=== PATIENT | female | born 1960 | race Caucasian/White ===

== ENCOUNTER → 2023-08-09 07:48 | Outpatient (CLI) | payer MEDICARE, OTHER, SELFPAY ==
--- NOTE | 2023-08-09 07:52 | DI.US.S_ITS ---
PROCEDURE: US PELVIC COMPLETE INDICATIONS: PELVIC PAIN TECHNIQUE: Real-time scanning was performed of the pelvic organs, with image documentation. Additional endovaginal scanning was necessary due to incomplete visualization of the adnexal and endometrial structures by transabdominal scanning. COMPARISON: None. FINDINGS: Uterus: Uterus is anteverted and normal in size at 6.5 x 2.9 x 3.9 cm. The myometrium is homogeneous. The endometrium measures 4 mm combined thickness. Ovaries: The right ovary measures 2.9 x 2.0 x 1.8 cm, with a calculated ovarian volume of 5.3 cc. The left ovary is not visualized. The ovaries have a normal sonographic appearance. Less than 12 follicles can be seen in each ovary. No adnexal masses are seen. Other: No pathologic free abdominal or pelvic fluid. IMPRESSION: 1. Left ovary is not visualized. 2. Normal uterus and right ovary. 3. A cause for pelvic pain is not identified. We strive to produce accurate, complete, and clear reports of imaging services. To assist us in improving patient care, this report was composed using standard report templates and voice recognition software. Therefore, it may contain abnormal punctuation, insertions and/or omissions. Occasional wrong-word or sound-alike substitutions may occur. Though we review the report and make efforts to correct it, we do recommend that the report be read carefully in proper context to recognize any text inaccuracies. Dictated by: Sumit Fletcher M.D. on 08/09/2023 at 10:01 Approved by: Sumit Fletcher M.D. on 08/09/2023 at 10:03
== END ==
PROVIDERS: PCP Nurse Practitioner; Referring Provider Nurse Practitioner; Visit Provider Nurse Practitioner
DX: N94.89 Other specified conditions associated with female genital organs and menstrual cycle (principal)
CPT/HCPCS: 76830; 76856

== ENCOUNTER → 2023-08-29 12:28 | Outpatient (CLI) | payer MEDICARE, OTHER, SELFPAY ==
--- NOTE | 2023-08-29 12:29 | DI.RAD.S_ITS ---
PROCEDURE: XR HIP W PEL IF DONE ELENA MIN 4V INDICATIONS: Right hip pain - concern for osteoarthritis TECHNIQUE: AP pelvis with lateral view(s) of the bilateral hip(s). COMPARISON: [facility], CR, [id number] W PEL IF PERFORMED, 12/15/2016, 15:28. FINDINGS: Bones: 2 irregular lines of sclerosis along the subcapital left femoral neck are new since prior exams. There is progressive femoroacetabular joint space loss on the left and mild medial joint space loss in the right hip. There is chronic irregularity at the left pubic symphysis suggesting a remote fracture. Soft tissues: There is new calcification immediately lateral to the right femoroacetabular joint. Bowel gas pattern is normal. IMPRESSION: 1. There is no periarticular calcification at the right hip which may be chondrocalcinosis, articular surface or labral. 2. Development of subcapital sclerotic lines in the left femoral neck is suspicious for insufficiency fracture. Consider MRI for detection of acute osseous edema. Dictated by: Melba Curry M.D. on 08/29/2023 at 15:59 Approved by: Melba Curry M.D. on 08/29/2023 at 16:14
== END ==
PROVIDERS: PCP Nurse Practitioner; Referring Provider Physician Assistant; Visit Provider Physician Assistant
DX: M25.551 Pain in right hip (principal)
CPT/HCPCS: 73522

== ENCOUNTER → 2023-09-05 08:07 | Outpatient (CLI) | payer MEDICARE, OTHER, SELFPAY ==
--- NOTE | 2023-09-05 08:09 | DI.ECHO.S_ITS ---
[facility] +---------+ : : [address] : : : : [id number] : : : : Phone: [phone]+ Echocardiogram Report + + :Name: AARON ARAGON V Study Date: 09/05/2023 Height: 65 in : :[facility] ReadingLocation: Weight: 130 lb : : Gender: Female BSA: 1.6 m2 : :: 1960 Age: 63 yrs BP: 105/66 mmHg: :Reason For Study: HYPERTENSION : :Ordering Physician: SANDOR, : :WESLY Performed By: Audrey Rodriguez : :Referring: WESLY PATTEN : + + Interpretation Summary The ejection fraction is estimated to be 60-65%. Diastolic parameters suggest probable normal left ventricular diastolic function and normal filling pressures. The right ventricle is normal in size and function. There is mild tricuspid regurgitation. The right ventricular systolic pressure is estimated to be at least 18 mmHg based on an estimated right atrial pressure of 3 mm Hg. Procedure: A two-dimensional transthoracic echocardiogram with color flow and Doppler was performed. The study quality was technically adequate. There is no prior echocardiogram noted for this patient. The patient was in sinus bradycardia with heart rates between 49-66 bpm during the exam. Left Ventricle: The left ventricle is normal in size and wall thickness. The ejection fraction is estimated to be 60-65%. Diastolic parameters suggest probable normal left ventricular diastolic function and normal filling pressures. Right Ventricle: The right ventricle is normal in size and function. Atria: The left atrial size is normal. Right atrial size is normal. There is no Doppler evidence for an interatrial shunt. Mitral Valve: The mitral valve is normal in structure and function. There is trace mitral regurgitation. Aortic Valve: The aortic valve is trileaflet. The aortic valve opens well. There is no aortic valve stenosis. No aortic regurgitation is present. Tricuspid Valve: The tricuspid valve is normal in structure and function. There is mild tricuspid regurgitation. The right ventricular systolic pressure is estimated to be at least 18 mmHg based on an estimated right atrial pressure of 3 mm Hg. Pulmonic Valve: The pulmonic valve leaflets are thin and pliable; valve motion is normal. There is mild pulmonic regurgitation. Great Vessels: The aortic root is normal size. The dimensions of the ascending aorta are normal. The IVC is of normal diameter and collapses greater than 50% with a sniff. This suggests a low right atrial pressure of 3 mm Hg. Pericardium/ Pleura There is no pericardial effusion. There is no pleural effusion. MMode/2D Measurements & Calculations LVIDd: 3.9 cm LVOT diam: 2.3 cm LVIDs: 2.4 cm Ao root diam: 3.4 cm FS: 37.8 % asc Aorta Diam: 3.0 cm EPSS: 0.28 cm Ao Arch Diam (Prox Trans): 2.8 cm IVSd: 0.61 cm LVPWd: 0.82 cm LV mack. diameter/BSA (cm/m^2): 2.4 LV sys. diameter/BSA (cm/m^2): 1.5 LA A2 area: 18.5 cm2 RA long axis: 5.1 cm LA A4 area: 15.0 cm2 RA area: 16.3 cm2 LA length (vol): 4.5 cm RA vol: 43.9 ml LA vol: 53.0 ml RA : 26.7 ml/m2 LA vol index: 32.2 ml/m2 IVC diam: 1.4 cm RVD1 (basal): 3.6 cm RVD2 (mid): 2.7 cm TAPSE: 2.2 cm Doppler Measurements & Calculations Ao V2 max: 134.0 cm/sec LVOT Max Caleb: 123.3 cm/sec Ao V2 mean: 99.9 cm/sec LV V1 max P.1 mmHg Ao max P.2 mmHg LV V1 VTI: 29.0 cm Ao mean P.3 mmHg ROBERTO(I,D): 3.6 cm2 Ao V2 VTI: 31.9 cm ROBERTO(V,D): 3.7 cm2 sev ratio: 0.91 ROBERTO indexed to BSA (cm^2/m^2): 2.2 MV E max caleb: 66.1 cm/sec TR max caleb: 191.8 cm/sec MV A max caleb: 69.2 cm/sec TR max P.7 mmHg MV E/A: 0.95 PA V2 max: 94.0 cm/sec Med Peak E' Caleb: 5.2 cm/sec PA V2 mean: 72.2 cm/sec E/E' med: 12.6 PA mean P.2 mmHg Lat Peak E' Caleb: 9.4 cm/sec PA pr(Accel): 19.1 mmHg E/E' lat: 7.0 E/e' average: 9.8 MV dec time: 0.17 sec SV(LVOT): 116.5 ml Reading Physician:10:26 AM
--- NOTE | 2023-09-05 08:09 | DI.RAD.S_ITS ---
Bone Density Report Name: AARON ARAGON V Age: 63 Sex: Female Ethnicity: White Date of : 1960 Indication: postmenopausal; screening for osteoporosis; Referring Provider: WESLY PATTEN Study: Bone densitometry was performed. Exam Date: September 05, 2023 Accession number: [id number] Bone Density: Region BMD T-score Z-score Classification AP Spine(L1-L4) 0.853 -1.8 0.0 Osteopenia Femoral Neck (Left) 0.729 -1.1 0.4 Osteopenia Total Hip (Left) 0.825 -1.0 0.3 Normal Femoral Neck (Right) 0.608 -2.2 -0.6 Osteopenia Total Hip (Right) 0.783 -1.3 -0.1 Osteopenia Total Hip Mean 0.804 -1.2 0.1 Osteopenia World Health Organization criteria for BMD impression classify patients as: Normal (T-score at or above -1.0), Osteopenia (T-score between -1.0 and -2.5), or Osteoporosis (T-score at or below -2.5). 10-year Fracture Risk(1): Major Osteoporotic Fracture 10% Hip Fracture 1.8% Reported Risk Factors: [place] (), Neck BMD=0.608, BMI=21.6 (1) FRAX(R) Version 3.08. Fracture probability calculated for an untreated patient. Fracture probability may be lower if the patient has received treatment. Impression: The patient has low bone mass, based on the Right Femoral Neck T-score. The patient has an estimated ten-year risk of hip fracture of 1.8% and an estimated ten-year risk of major fracture of 10%, based on the WHO FRAX algorithm. Discussion: BONE DENSITY IS LOW AT ONE OR MORE SKELETAL SITES. This patient's lowest T-score is low at one or more skeletal sites. It meets the World Health Organization's (WHO) criteria for low bone mass (T-score between -1.0 and -2.5). The patient's 10-year risk of fracture as calculated by FRAX is less than the threshold where pharmacological therapy is recommended by the National Osteoporosis Foundation (NOF). However, all treatment decisions require clinical judgment and consideration of individual patient factors, including patient preferences, comorbidities, previous drug use, risk factors not captured in the FRAX model (e.g., frailty, falls, vitamin D deficiency, increased bone turnover, interval significant decline in bone density) and possible under or overestimation of fracture risk by FRAX. The patient should follow a healthful lifestyle (good nutrition with adequate calcium and vitamin D, and appropriate weight-bearing exercise). Follow-Up: Consider repeating this study in 2 to 3 years to reassess this patient's status, or sooner if there is some new clinical indication. Reported by: GOOD FALK M.D. on 09/05/2023 9:18:00 AM.
== END ==
PROVIDERS: PCP Nurse Practitioner; Referring Provider Nurse Practitioner; Visit Provider Nurse Practitioner
DX: I37.1 Nonrheumatic pulmonary valve insufficiency (principal); I07.1 Rheumatic tricuspid insufficiency; I10 Essential (primary) hypertension; M81.0 Age-related osteoporosis without current pathological fracture
CPT/HCPCS: 77080; 93306

== ENCOUNTER → 2023-09-12 08:50 | Outpatient (CLI) | payer MEDICARE, OTHER, SELFPAY ==
[2023-09-12 09:36] LABS: Add Manual Diff / Slide Review NO; Basophils Absolute Auto 0 /uL (0-100); Basophils Percent Auto 1.2 % (0-2); Eosinophils Absolute Auto 100 /uL (0-450); Hematocrit 39.6 % (36-46); Hemoglobin 13.6 g/dL (12.0-16.0); Lymphocytes Absolute Auto 1800 /uL (1100-4500); Lymphocytes Percent Auto 46.6 % (25-40); Mean Corpuscular HGB Conc 34.4 % (30-36); Mean Corpuscular Hemoglobin 31.4 PG (26-34); Mean Corpuscular Volume 91.3 fL (80-100); Monocytes Absolute Auto 300 /uL (0-900); Monocytes Percent Auto 7.5 % (3-14); Neutrophils Absolute Auto 1600 /uL (1500-7000); Neutrophils Percent Auto 41.7 % (50-75); Platelet Count 252 X10^3/uL (150-400); Red Blood Cell Count 4.34 X10^6/uL (4.0-5.2); Red Cell Distribution Width 12.4 % (11.6-14.8); White Blood Cell Count 3.9 X10^3/uL (4.5-11.0)
[2023-09-12 10:42] LABS: Alanine Aminotransferase 27 IU/L (<35); Albumin 4.6 g/dL (3.5-5.0); Albumin Globulin Ratio 1.6 (1.0-2.8); Alkaline Phosphatase 62 U/L (38-126); Aspartate Aminotransferase 31 IU/L (14-36); BUN Creatinine Ratio 25.3 (6-22); Bilirubin Total 0.7 mg/dL (0.2-1.3); Blood Urea Nitrogen 25 mg/dL (7-17); Carbon Dioxide 27 mmol/L (22-32); Chloride 102 mmol/L (98-107); Cholesterol 207 mg/dL (140-199); Estimated Glomerular Filt Rate > 60 mL/min (>60); Globulin 2.8 g/dL (1.7-4.1); Glucose 88 mg/dL (80-110); HDL Cholesterol 56 mg/dL (40-60); HEMOLYSIS < 15 (0-50); LDL Cholesterol Calculated 136 mg/dL (<100); Potassium 4.3 mmol/L (3.4-5.1); Sodium 138 mmol/L (137-145); Total Protein 7.4 g/dL (6.3-8.2); Triglycerides 73 mg/dL (35-150)
[2023-09-12 10:43] LABS: Free T3, Triiodothyronine Free 4.23 pg/mL (2.77-5.27); Free T4, Direct Thyroxine 0.98 ng/dL (0.78-2.19)
[2023-09-12 10:57] LABS: Thyroid Stimulating Hormone 4.66 uIU/mL (0.47-4.68)
[2023-09-12 11:24] LABS: Creatinine Urine Random 60.6 mg/dL
[2023-09-12 11:50] LABS: Microalbumin Urine Random < 0.6 mg/dL (0-1.6)
[2023-09-13 17:43] LABS: HIV 1 & 2 Ab/Ag 4th Gen Combo NEGATIVE (NEGATIVE); Hep C Virus Ab w/Reflex Quant NEGATIVE s/c (NEGATIVE)
== END ==
PROVIDERS: PCP Nurse Practitioner; Referring Provider Nurse Practitioner; Visit Provider Nurse Practitioner
DX: I10 Essential (primary) hypertension (principal); M81.0 Age-related osteoporosis without current pathological fracture; F41.9 Anxiety disorder, unspecified; G47.00 Insomnia, unspecified; E78.5 Hyperlipidemia, unspecified; Z11.4 Encounter for screening for human immunodeficiency virus [HIV]; D64.9 Anemia, unspecified; Z11.59 Encounter for screening for other viral diseases
CPT/HCPCS: 36415; 80053; 80061; 82043; 82570; 84439; 84443; 84481; 85025; 86803; 87389; 93005

== ENCOUNTER → 2023-09-27 16:47 | Outpatient (CLI) | payer MEDICARE, OTHER, SELFPAY ==
--- NOTE | 2023-09-27 | DI.MRI.S_ITS ---
PROCEDURE: MR HIP LT WO CON INDICATIONS: HIP PAIN TECHNIQUE: Noncontrast coronal T1 spin echo and STIR through the bony pelvis. Coronal and axial T2 fast spin echo with fat saturation, sagittal T1 spin echo, and oblique axial T2 fast spin echo with fat saturation through the hip. COMPARISON: None. FINDINGS: Image quality: Excellent. Bones and joints: Moderate bilateral hip joint osteoarthritic changes are seen with superior joint space narrowing, subchondral sclerosis and marginal osteophyte formation. No fracture or dislocation. No evidence of avascular necrosis of femoral head. Mild degenerative disc disease in visualized lower lumbar spine is seen. Tendons and ligaments: Distal left gluteus medius and minimus tendinosis at their insertions on greater trochanter is seen. The nearby proximal iliotibial band also appears intact. The iliopsoas tendon appears intact, without adjacent bursal fluid collections or evidence for impingement syndrome. Tendinosis involving origins of left hamstring tendons at ischial tuberosity is also noted. Labrum and cartilage: Diffuse loss of articulating cartilage over left femoral head is seen with global signal abnormality throughout superior left hip labrum extending from 11-1 o'clock position suggestive of extensive superior left hip labral tear. he alpha angle of the femur is within normal limits at less than 55 degrees. Soft tissues: Visualized muscles demonstrate normal bulk and internal signal. Quadratus femoris muscle demonstrates no internal edema to suggest ischiofemoral impingement. The proximal sciatic neurovascular bundle appears normal adjacent to the hamstring tendons. No free pelvic fluid. Bladder wall thickness is normal. Genitourinary structures and bowel loops appear normal where visualized. IMPRESSION: 1. Moderate bilateral hip joint osteoarthritis. No acute fracture or dislocation. No evidence of avascular necrosis. 2. Distal left gluteus medius and minimus tendinosis. Tendinosis involving left hamstring tendon origins at ischial tuberosity. No other muscle or tendon signal abnormalities. 3. Suggestion of extensive left hip superior labral tear extending from 11-1 o'clock position. Dictated by: Roberto Estes M.D. on 09/28/2023 at 9:32 Approved by: Roberto Estes M.D. on 09/28/2023 at 9:36
--- NOTE | 2023-09-27 | DI.MRI.S_ITS ---
PROCEDURE: MR HIP RT WO CON INDICATIONS: HIP PAIN TECHNIQUE: Noncontrast coronal T1 spin echo and STIR through the bony pelvis. Coronal and axial T2 fast spin echo with fat saturation, sagittal T1 spin echo, and oblique axial T2 fast spin echo with fat saturation through the hip. COMPARISON: [facility], MR, MR HIP LT WO CON, 09/27/2023, 17:03. FINDINGS: Image quality: Excellent. Bones and joints: Moderate bilateral hip joint osteoarthritic changes are seen. There is no marrow edema. No acute fracture or dislocation. Well-circumscribed T1 hypointense and T2 hyperintense structure involving superior anterior right acetabulum without associated marrow edema or cortical destruction likely represent prominent subcortical cyst. No evidence of avascular necrosis of femoral head. Mild degenerative disc disease in visualized lower lumbar spine is seen. Tendons and ligaments: Low-grade partial-thickness tear involving distal right gluteus medius tendon at its insertion on greater trochanter is seen. Distal right gluteus minimus tendinosis is seen. The nearby proximal iliotibial band also appears intact. The iliopsoas tendon appears intact, without adjacent bursal fluid collections or evidence for impingement syndrome. Tendinosis involving origins of the right hamstring tendons at ischial tuberosity is noted. Labrum and cartilage: Global signal abnormality throughout right hip labrum with extensive fraying is seen suggestive of extensive superior right hip labral tear at 11 to 1 o'clock position. Diffuse thinning of articulating cartilage over right femoral head is seen. The alpha angle of the femur is within normal limits at less than 55 degrees. Soft tissues: Visualized muscles demonstrate normal bulk and internal signal. Quadratus femoris muscle demonstrates no internal edema to suggest ischiofemoral impingement. The proximal sciatic neurovascular bundle appears normal adjacent to the hamstring tendons. No free pelvic fluid. Bladder wall thickness is normal. Genitourinary structures and bowel loops appear normal where visualized. IMPRESSION: 1. Moderate bilateral hip joint osteoarthritis. No fracture or dislocation. No evidence of avascular necrosis of femoral head. Possible subcortical cystic changes involving superior anterior right acetabulum. 2. Low-grade partial-thickness tear involving distal right gluteus medius tendon at its insertion on greater trochanter. Distal right gluteus minimus tendinosis. Tendinosis involving right hamstring tendon origins at ischial tuberosity. 3. Suggestion of extensive right hip labral tear at 11 to 1 o'clock position. Dictated by: Roberto Estes M.D. on 09/28/2023 at 9:39 Approved by: Roberto Estes M.D. on 09/28/2023 at 9:42
== END ==
PROVIDERS: PCP Nurse Practitioner; Referring Provider Physical Medicine & Rehabilitation; Visit Provider Physical Medicine & Rehabilitation
DX: M16.0 Bilateral primary osteoarthritis of hip (principal); M25.551 Pain in right hip; M25.552 Pain in left hip; G89.29 Other chronic pain
CPT/HCPCS: 73721

== ENCOUNTER → 2023-12-24 09:25 | Outpatient (CLI) | payer MEDICARE, OTHER, SELFPAY ==
[2023-12-24 11:12] LABS: BUN Creatinine Ratio 34.5 (6-22); Blood Urea Nitrogen 30 mg/dL (7-17); Calcium 10.8 mg/dL (8.4-10.2); Carbon Dioxide 31 mmol/L (22-32); Chloride 108 mmol/L (98-107); Estimated Glomerular Filt Rate > 60 mL/min (>60); Glucose 94 mg/dL (80-110); HEMOLYSIS < 15 (0-50); Potassium 4.6 mmol/L (3.4-5.1); Sodium 141 mmol/L (137-145)
== END ==
LOC: LAB 09:27
PROVIDERS: PCP Nurse Practitioner; Referring Provider Orthopaedic Surgery; Visit Provider Orthopaedic Surgery
DX: Z01.812 Encounter for preprocedural laboratory examination (principal)
CPT/HCPCS: 36415; 80048

== ENCOUNTER → 2024-11-28 08:41 | Outpatient (CLI) | payer MEDICARE, OTHER, SELFPAY ==
--- NOTE | 2024-11-28 08:44 | DI.MG.S_ITS ---
MM diagnostic mammo BI: 11/28/2024. BI-RADS: 1 CLINICAL: 64-year old female for bilateral diagnostic mammogram. Tyrer-Cuzick lifetime risk of 7.3%. No personal or first-degree family history of breast cancer. The patient reports diffuse, intermittent pain (1 month) in the left breast. The patient recently started HRT. PRIOR EXAMS No prior examinations available. New baseline exam. MAMMOGRAPHY TECHNIQUE: 2D and 3D (tomosynthesis) digital mammographic views obtained, with additional images as needed for full coverage. Current study was also evaluated with a Computer Aided Detection (CAD) system. DENSITY C. The breasts are heterogeneously dense, which may obscure small masses. MAMMOGRAPHY FINDINGS Right: No suspicious mass, asymmetry, microcalcification, or other abnormality seen. Left: There is no suspicious mammographic finding to account for concern by the patient of pain/tenderness. No suspicious mass, asymmetry, microcalcification, or other abnormality seen. IMPRESSION: * No evidence of malignancy. RECOMMENDATIONS Left * Diffuse, non-focal symptoms, such as pain or fullness are typically benign. Clinical follow-up is recommended, and further management of these symptoms should be based on the results of clinical evaluation. If diffuse symptoms persist or become more focal in nature, further clinical evaluation should be considered. Bilateral * Annual screening mammography. COMMENTS: Findings and recommendations were conveyed to the patient during today's evaluation. OVERALL ASSESSMENT CATEGORY BI-RADS-1: Negative. The [employer] recommends annual screening mammography beginning at age 40 for women with average risk of breast cancer. ELECTRONICALLY SIGNED: Luciana Rodriguez M.D. on 11/28/2024 at 09:27:18 AM PT Interpreting Station ID: [id number]
== END ==
PROVIDERS: PCP Nurse Practitioner Family; Referring Provider Nurse Practitioner Family; Visit Provider Nurse Practitioner Family
DX: N64.4 Mastodynia (principal); R92.333 Mammographic heterogeneous density, bilateral breasts
CPT/HCPCS: 77066; G0279

== ENCOUNTER 2025-04-25 08:50 | Emergency (ER) | payer MEDICARE, OTHER, SELFPAY ==
[2025-04-25 09:06] VITALS: BP 116/68; PULSE 79; RESP 18; TEMP 36.2; O2SAT 99; BMI 21.6
--- NOTE | 2025-04-25 09:24 | ED.WOUNDLAC ---
HPI - Wound/Laceration General Chief Complaint: Wound/Laceration Stated Complaint: Split cavazos on a box Time Seen by Provider: 04/25/25 08:53 Source: patient Mode of arrival: Ambulatory History of Present Illness HPI narrative: 64-year-old female was at [employer] today when she hit her cavazos against the box jumping presents with laceration to the cavazos. Last tetanus was over 8 years ago. She is able to walk on it with no difficulty but came in directly from the gym at this time. Other than what is stated 14 point review of system is negative. Related Data Home Medications ?Medication ?Instructions ?Recorded ?Confirmed cholecalciferol (vitamin D3) 50 50 mcg PO DAILY 09/11/23 03/05/25 mcg (2,000 unit) capsule Previous Rx's ?Medication ?Instructions ?Recorded lisinopril 5 mg tablet 5 mg PO QDAY #90 tabs 06/11/24 progesterone micronized 100 mg 100 mg PO QAM #90 caps 06/11/24 capsule benzonatate 200 mg capsule 200 mg PO BID-TID PRN cough #30 01/13/25 caps fluticasone propionate 50 1 spray intranasal BID #16 grams 01/13/25 mcg/actuation nasal spray,suspension (Flonase Allergy Relief) hydroxyzine HCl 25 mg tablet 25 mg PO BID PRN anxiety #30 tabs 01/13/25 methocarbamol 500 mg tablet 500 mg PO TID #6 tabs 01/15/25 sertraline 50 mg tablet 50 mg PO Q24H #90 tabs 03/05/25 estradiol 0.025 mg/24 hr 1 patch transdermal 2XW #24 ea 03/23/25 semiweekly transdermal patch Allergies Allergy/AdvReac Type Severity Reaction Status Date / Time tramadol AdvReac Severe Dizziness Verified 04/25/25 09:07 Review of Systems Review of Systems ROS Unobtainable: All systems reviewed & are unremarkable except as noted in HPI and below Patient History Medical History (Updated 04/25/25 @ 10:15 by Hermilo Baltazar, ) Osteopenia Depression Mild tricuspid regurgitation Osteopenia determined by x-ray Hyperlipidemia Insomnia Anxiety Smoking Status: Never smoker Exam Narrative Exam Narrative: GENERAL: [64] year old patient appears stated age. Well-developed patient, in mild distress. HEAD: Atraumatic. Normocephalic. EYES: Pupils equal round and reactive. Extraocular motions intact. No scleral icterus. No injection or drainage. EXTREMITIES: No edema or joint tenderness. BACK: Nontender without deformity or crepitance. No flank tenderness. NEURO: AOx3. SKIN: Right lower anterior mid distal 1/3 linear laceration 3 x 1 cm motor and sensory intact +2 DP +2 PT cap refill less than 2 seconds Initial Vital Signs Initial Vital Signs: Vital Signs Temperature 97.1 F L 04/25/25 09:06 Pulse Rate 79 04/25/25 09:06 Respiratory Rate 18 04/25/25 09:06 Blood Pressure 116/68 04/25/25 09:06 Pulse Oximetry 99 04/25/25 09:06 Oxygen Delivery Method Room Air 04/25/25 09:06 Procedures Laceration Repair Laceration 1: Time of procedure: 10:00 Site: lower extremity Size (cm): 3 Description: linear Depth: simple, single layer Local Anesthetic: lidocaine 1% and with epi Amount of anesthesia used (mL): 4 Pre-repair: wound explored Skin layer closed with: nylon Skin layer suture size: 4-0 Number of sutures: 5 Technique: simple, interrupted Course Vital Signs Vital signs: Vital Signs - 8 hr 04/25/25 09:06 Temperature 97.1 F L Pulse Rate 79 Respiratory Rate 18 Blood Pressure 116/68 Pulse Oximetry 99 Oxygen Delivery Method Room Air MDM - Wound/Laceration MDM Narrative Medical decision making narrative: Vital signs, nurse triage note, medication list, previous ER visits, and all imaging studies reviewed. Five stitches placed, single interrupted using 4-0 nylon. Bacitracin applied and tetanus updated. Suture removal in 10-14 days. Differential diagnosis laceration, cellulitis, foreign body. Discharge Plan Departure Patient Disposition: Home Clinical Impression: Laceration of leg Qualifiers: Encounter type: initial encounter Laterality: right Qualified Code(s): S81.811A - Laceration without foreign body, right lower leg, initial encounter Instructions: DI for Laceration Repair Activity Restrictions/Additional Instructions: Return with new or worsening symptoms. Suture removal in 10-14 days. Prescriptions: No Action methocarbamol 500 mg tablet 500 mg PO TID Qty: 6 0RF benzonatate 200 mg capsule 200 mg PO BID-TID PRN (Reason: cough) Qty: 30 0RF fluticasone propionate [Flonase Allergy Relief] 50 mcg/actuation spray,suspension 1 spray intranasal BID Qty: 16 0RF Rx Instructions: administer into each nostril hydroxyzine HCl 25 mg tablet 25 mg PO BID PRN (Reason: anxiety) Qty: 30 0RF estradiol 0.025 mg/24 hr patch semiweekly 1 patch transdermal 2XW Qty: 24 0RF Rx Instructions: apply 1 patch for 3 days alternating with 1 patch for 4 days each week cholecalciferol (vitamin D3) 50 mcg (2,000 unit) capsule 50 mcg PO DAILY lisinopril 5 mg tablet 5 mg PO QDAY Qty: 90 3RF progesterone micronized 100 mg capsule 100 mg PO QAM Qty: 90 3RF Rx Instructions: Take 1 capsule daily while on estrogen sertraline 50 mg tablet 50 mg PO Q24H Qty: 90 3RF Referrals: Reta Rojas FNP-BC [Primary Care Provider, Family Practice] Stand Alone Forms: Patient Portal/API
[2025-04-25] MEDS: TET,DIPH,PERTUSS(ACELL),VAC/PF 0.5 ML SYRINGE IM (09:35)
[2025-04-25] MEDS: LIDOCAINE 1% W/EPI 10ML 4 ML INJ (09:39)
[2025-04-25] MEDS: BACITRACIN OINT 0.9 GM PCKT 1 APPLIC TOP (10:13)
[2025-04-25 10:24] VITALS: BP 113/63; PULSE 64; RESP 15; O2SAT 98
== END 2025-04-25 10:41 | disposition home or self-care (01) ==
PROVIDERS: Emergency Provider Family Medicine; PCP Nurse Practitioner Family
DX: S81.811A Laceration without foreign body, right lower leg, initial encounter (principal); W22.8XXA Striking against or struck by other objects, initial encounter; Z23 Encounter for immunization
CPT/HCPCS: 12002; 90471; 99283; 99284; 90715